=== PATIENT | female | born 1955 | race Caucasian/White ===

== ENCOUNTER 2016-11-24 14:03 | Outpatient (CLI) | payer OTHER ==
[~2016-11-24] VITALS: Ht 166.4 cm; Wt 59.1 kg
[~2016-11-24 14:03] MED LIST: GLYB5TAB3 PO; LEVO750T8 PO; LISI-313 PO; LOVA40TA64 PO; METF-388 PO
[2016-11-24 14:10] VITALS: BP 136/60; PULSE 88; RESP 18; Ht 166.4 cm; Wt 59.1 kg
--- NOTE | 2016-11-25 11:49 | PN ---
Date/Time of Note Date/Time of Note DATE: 11/25/16 TIME: 11:48 Outpatient Progress Note Chief Complaint Pneumonitis/diabetes/hypertension/hyperlipidemia/thyroid nodule/anemia HPI Pneumonitis/patient has minimal cough, no expectoration, no fever or chill, chest x-ray still shows minimal infiltrate, patient asymptomatic at present, Diabetes/no polydipsia or polyuria hypoglycemia, gastroparesis, Hypertension/no headache or dizziness or lightheadedness, no local focal weakness, Hyperlipidemia/no xanthoma, on medication, Thyroid nodule patient has thyroid nodule, no tremors no weight loss, lab reviewed with the patient,, Anemia/no hematemesis or melena, no bruise or ecchymosis, no bleeding, no fatigue, Review of Systems Const: No Fever, no chills, no Wt. loss, no Fatigue, normal appetite, no diaphoresis. Eyes: No pain, no discharge, no redness, no visual change, no foreign body. ENT: No pain, no bleeding, no congestion, no sore throat, no dysphagia, no discharge or rhinitis. Lymph: No adenopathy, no tender nodes, no lymphedema. Resp: No SOB, no cough, no sputum, no wheezing, no chest pain. CV: No chest pain, no palpitaions, no CHAPMAN, no PND, no edema. GI: Normal appetite, no pain, no nausea, no vomiting, no diarrhea, no blood, no constipation. : No frequency, no urgency, no dysuria, no hematuria, no flank pain, no discharge, no bleeding. Musc: No bone/joint pain, no back pain, no neck pain, no knee pain, no restricted ROM. Skin: No rash, no skin lesions, no erythema, no laceration, no bruising, no pruritus. Neuro: No RUELAS, no dizziness, no syncope, no seizure, no focal-weakness. Endo: No polyuria, no polydypsia, no dry-skin, no temp-intolerance. Psych: No hallucinations, no depression, no anxiety, no suicidal ideation. Ext: No edema, no pain, no ulcer, no weakness. Physical Exam Vital Signs Date Time Temp Pulse Resp B/P Pulse Ox O2 Delivery O2 Flow Rate FiO2 11/24/16 14:10 98.7 88 18 136/60 99 Room Air General Appearance: A 61 year-old female who appears well-developed, well- nourished, in no acute distress. HEENT: Head normocephalic, atraumatic. Pupils equal, round, reactive to light and accommodate. Sclerae are no jaundice. Nasal turbinates pink without erythema or nasal discharge. Mucous membranes pink and moist without lesions. Oropharynx clear without any exudate or discharge. NECK: Supple. Trachea midline, No thyromegaly, No cervical lymphadenopathy, No mass, No carotid bruits, No JVD, Carotid pulses 2+ bilaterally. PULMONARY: Clear to auscultaion bilaterally, No retractions, Chest expansion symmetric bilaterally, no rales, no ronchi, no dulness on percussion. CARDIAC: Normal SI and S2, Regular rate and rythm, no murmur, gallop, or rub. GASTROINTESTINAL: Abdomen is soft, non-tender, Non Rigid, No distention, Positive bowel sounds x4 quadrants, Liver normal. SKIN: Warm, dry, no rash, no bruise, no echmosis. EXTREMITIES: Bilateral lower extremities normal, no edema, no phlabitus, pulse palpable, no contracture. MUSCULOSKELETAL: Spine Normal, Non-tender, Normal range of motion, No swelling, no deformity, no clubbing, or cyanosis, the patient has no edema to bilateral lower extremities, dorsalis pedis pulses palpable bilaterally. NEUROLOGIC: The patient is awake, alert, oriented, responding to yes/no questions appropriately, moving all extremities, cranial nerve intact, normal strenght, normal power, normal coordination, normal gait. Allergies Coded Allergies: No Known Drug Allergies (Verified Allergy, Unknown, 11/10/16) PMH No change Social Hx No change Family Hx No change Assessment/Plan Impression Pneumonitis resolving/diabetes/hypertension/hyperlipidemia/thyroid nodule/anemia Plan Patient has minimal cough, patient has completed course of antibiotic, no need for antibiotic or repeat the chest x-ray, patient chest x-ray may be repeated after few weeks, Patient advised to follow with the primary care physician, take the log of blood pressure and blood sugar, Patient education done about diabetic and hypertension Patient given a copy of thyroid CAT scan, which was nodule, primary care to follow with the further workup,, CBC CMP results noted, and discussed with the patient, patient slightly anemic, Ferrous sulfate 325 by mouth 3 times a day, repeat the lab in few weeks, if no improvement may need workup for anemia, including EGD and colonoscopy, discussed with the patient, Medications Home Meds Reported Medications Metformin Hcl* (Metformin Hcl*) 1,000 Mg Tablet, 1000 MG PO WITH BREAKFAST DINNE , #60 TAB 11/10/16 Glyburide* (Glyburide*) 5 Mg Tablet, 5 MG PO BID, #60 TAB 11/10/16 Lovastatin* (Altoprev*) 40 Mg Tab.sr.24h, 40 MG PO HS, TAB 11/10/16 Lisinopril* (Lisinopril*) 5 Mg Tablet, 5 MG PO DAILY, #30 TAB 11/10/16 Discontinued Reported Medications Levofloxacin* (Levofloxacin*) 750 Mg Tablet, 750 MG PO DAILY for 7 Days, TAB 11/10/16 ANKUR FARFAN MD Nov 25, 2016 11:49
== END 2016-11-24 16:25 | disposition home or self-care (01) ==
LOC: DCC 14:03
PROVIDERS: ATTEND Internal Medicine
DX: J18.9 Pneumonia, unspecified organism (principal); E11.9 Type 2 diabetes mellitus without complications; I10 Essential (primary) hypertension; E78.5 Hyperlipidemia, unspecified; E04.1 Nontoxic single thyroid nodule; D64.9 Anemia, unspecified
CPT/HCPCS: G0463